=== PATIENT | female | born 1940 | race Caucasian/White ===

== ENCOUNTER 2021-11-24 16:14 | Inpatient (IN) | payer MEDICARE, BC ==
[~2021-11-24 16:14] MED LIST: Iopamidol-370 76% 500 ML 1 ML ONE
[2021-11-24 17:00] LABS: Hemoglobin 9.2 g/dL (12.0-16.0); Mean Corpuscular Hemoglobin 23.4 pg (27.0-31.0); Mean Corpuscular Volume 77.8 fL (78.0-98.0); Platelet Count 142 thou/uL (130-400); RBC Distribution Width 18.3 % (11.5-14.5); Red Blood Cell (RBC) Count 3.95 mill/uL (4.20-5.40); White Blood Cell (WBC) Count 7.6 thou/uL (4.8-10.8)
[2021-11-24 17:01] LABS: #Eosinphils 0.2 thou/uL (0.0-0.7); #Lymphocytes 0.6 thou/uL (1.20-3.40); #Monocytes 0.7 thou/uL (0.11-0.59); #Neutrophils 6.2 thou/uL (1.40-6.50); %Basophils 0.2 % (0.0-1.0); %Eosinophils 2.1 % (0.0-10.0); %Lymphocytes 8.4 % (21.0-51.0); %Monocytes 8.7 % (0.0-10.0); %Neutrophils 80.6 % (42.0-75.0)
[2021-11-24 17:14] LABS: ALT (SGPT) 8 U/L (8-55); AST (SGOT) 18 U/L (5-34); Albumin 3.5 g/dL (3.4-4.8); Alkaline Phosphatase 60 U/L (40-110); Anion Gap 15 mmol/L (10-20); Anisocytosis SLIGHT = 6-15 cells (100X) (0-5/hpf); BUN (Urea Nitrogen) 24 mg/dL (9.8-20.1); Bilirubin, Total 0.7 mg/dL (0.2-1.2); Calc. Creatinine Clearance 0 mL/min (70-130); Calcium 8.4 mg/dL (7.8-10.44); Carbon Dioxide 27 mmol/L (23-31); Chloride 100 mmol/L (98-107); Globulin 2.9 g/dL (2.4-3.5); Glucose 137 mg/dL (83-110); Hypochromia SLIGHT = 6-15 cells (100X) (0-5/hpf); MDiff Complete? YES; Ovalocytes SLIGHT = 2-5 cells (100X) (0-1/hpf); Platelet Morphology Comment Appears Adequate; Polychromasia SLIGHT = 2-3 cells (100X) (0-2/hpf); Protein, Total 6.4 g/dL (5.8-8.1); Sodium 138 mmol/L (136-145)
[2021-11-24] MEDS ORDERED: Furosemide 40 MG/4 ML VIAL ONE (17:52)
[2021-11-24 19:58] LABS: Lactic Acid 0.8 mmol/L (0.5-2.2)
[2021-11-24] MEDS ORDERED: Dextrose 50% Abboject 50 ML SYRINGE SLOW IVP PRN (20:58)
[2021-11-24] MEDS ORDERED: Ondansetron PF 4 MG/2 ML Vial IVP PRN (20:58)
[2021-11-24] MEDS ORDERED: Ondansetron ODT 4 MG TAB PO PRN (20:58)
[2021-11-24] MEDS ORDERED: Dextrose 5% in Water 1,000 ML IV PRN (20:58)
[2021-11-24] MEDS ORDERED: HumaLOG 300 UNITS/3 ML VIAL SC PRN ×2 (20:58)
[2021-11-24] MEDS ORDERED: Acetaminophen 650 MG Suppository PR PRN (20:58)
[2021-11-24] MEDS ORDERED: Acetaminophen 325 MG TAB PO PRN (20:58)
[2021-11-25] MEDS: HYDROcodone/Acetaminophen 5/325 mg Tablet PO PRN ×5 (02:00→21:00)
[2021-11-25 04:44] LABS: #Eosinphils 0.2 thou/uL (0.0-0.7); #Lymphocytes 0.7 thou/uL (1.20-3.40); #Monocytes 0.6 thou/uL (0.11-0.59); #Neutrophils 5.5 thou/uL (1.40-6.50); %Basophils 0.1 % (0.0-1.0); %Eosinophils 2.8 % (0.0-10.0); %Lymphocytes 9.5 % (21.0-51.0); %Monocytes 8.2 % (0.0-10.0); %Neutrophils 79.5 % (42.0-75.0); Hemoglobin 7.8 g/dL (12.0-16.0); Mean Corpuscular HGB CONC 29.3 g/dL (32.0-36.0); Mean Corpuscular Volume 78.5 fL (78.0-98.0); Mean Platelet Volume 9.6 fL (7.4-10.4); Platelet Count 138 thou/uL (130-400); RBC Distribution Width 18.1 % (11.5-14.5); White Blood Cell (WBC) Count 6.9 thou/uL (4.8-10.8)
[2021-11-25 05:01] LABS: Iron Binding Capacity, Total 265 mcg/dL (265-497)
[2021-11-25 05:02] LABS: Anion Gap 11 mmol/L (10-20); BUN (Urea Nitrogen) 19 mg/dL (9.8-20.1); Calc. Creatinine Clearance 60 mL/min (70-130); Calcium 8.4 mg/dL (7.8-10.44); Carbon Dioxide 30 mmol/L (23-31); Chloride 100 mmol/L (98-107); Glucose 106 mg/dL (83-110); Iron 12 ug/dL (50-170); Iron Binding Capacity, Total 268 mcg/dL (265-497); Potassium 3.4 mmol/L (3.5-5.1); Sodium 138 mmol/L (136-145)
[2021-11-25 06:36] LABS: Iron 14 ug/dL (50-170)
[2021-11-25] MEDS ORDERED: Docusate 100 MG CAP PO PRN (08:15)
[2021-11-25] MEDS ORDERED: Furosemide 20 MG/2 ML VIAL SLOW IVP SCH (08:30)
[2021-11-25] MEDS ORDERED: Furosemide 40 MG/4 ML VIAL SLOW IVP SCH (09:00)
[2021-11-25] MEDS: Enoxaparin Sodium 40 MG/0.4 ML SYRINGE SC SCH (09:02)
[2021-11-25] MEDS: Aspirin 81 mg Enteric Coated Tablet PO SCH (09:03)
[2021-11-25] MEDS: Cholecalciferol 1,000 UNITS (25 MCG) TAB PO SCH (09:04)
[2021-11-25] MEDS ORDERED: Potassium Chloride 20 MEQ TAB PO SCH (12:15)
[2021-11-25] MEDS ORDERED: Electrolyte Replacement Protocol 1 EACH FS PRN (12:15)
[2021-11-25] MEDS: Furosemide 20 MG/2 ML VIAL SLOW IVP SCH (13:21)
[2021-11-25 13:36] LABS: Hemoglobin 9.4 g/dL (12.0-16.0)
[2021-11-25] MEDS: Ferrous Sulfate 325 MG TAB PO SCH (16:08)
[2021-11-25 18:05] LABS: SARS-CoV-2 PCR by NAA Not Detected (NotDetected)
[2021-11-25] MEDS: traZODone HCl 50 MG TAB PO SCH (21:01)
[2021-11-25] MEDS: Atorvastatin Calcium 10 MG TAB PO SCH (21:01)
[2021-11-25] MEDS: Latanoprost 0.005% Ophth Soln 2.5 ml Bottle EA EYE SCH (21:04)
[2021-11-26 05:18] LABS: Hemoglobin 8.2 g/dL (12.0-16.0); Mean Corpuscular HGB CONC 29.5 g/dL (32.0-36.0); Mean Corpuscular Hemoglobin 23.2 pg (27.0-31.0); Mean Corpuscular Volume 78.6 fL (78.0-98.0); Mean Platelet Volume 9.8 fL (7.4-10.4); Platelet Count 125 thou/uL (130-400); Red Blood Cell (RBC) Count 3.53 mill/uL (4.20-5.40); White Blood Cell (WBC) Count 4.9 thou/uL (4.8-10.8)
[2021-11-26 05:23] LABS: Anion Gap 10 mmol/L (10-20); BUN (Urea Nitrogen) 21 mg/dL (9.8-20.1); Calc. Creatinine Clearance 58 mL/min (70-130); Calcium 8.6 mg/dL (7.8-10.44); Carbon Dioxide 32 mmol/L (23-31); Cardiac Risk 2.9 (Less than 4.5); Chloride 98 mmol/L (98-107); Cholesterol 78 mg/dl (< 200 Desired); Glucose 99 mg/dL (83-110); HDL Cholesterol 27 mg/dL (>60 Neg Risk); LDL Cholesterol, Calculated 38 mg/dL; Potassium 3.9 mmol/L (3.5-5.1); Sodium 136 mmol/L (136-145); Triglycerides 66 mg/dL (Less than 150)
[2021-11-26] MEDS: HYDROcodone/Acetaminophen 5/325 mg Tablet PO PRN ×3 (05:36→17:16)
[2021-11-26] MEDS: Furosemide 20 MG/2 ML VIAL SLOW IVP SCH ×2 (05:36→13:42)
[2021-11-26] MEDS: Ferrous Sulfate 325 MG TAB PO SCH ×2 (09:13→17:16)
[2021-11-26] MEDS: Aspirin 81 mg Enteric Coated Tablet PO SCH (09:13)
[2021-11-26] MEDS: Enoxaparin Sodium 40 MG/0.4 ML SYRINGE SC SCH (09:13)
[2021-11-26] MEDS: Cholecalciferol 1,000 UNITS (25 MCG) TAB PO SCH (09:13)
[2021-11-26] MEDS: Vancomycin 25 MG/ML Oral SOLN PO SCH ×2 (11:27→21:54)
[2021-11-26] MEDS: Latanoprost 0.005% Ophth Soln 2.5 ml Bottle EA EYE SCH (21:54)
[2021-11-26] MEDS: Atorvastatin Calcium 10 MG TAB PO SCH (21:54)
[2021-11-26] MEDS: traZODone HCl 50 MG TAB PO SCH (21:55)
[2021-11-27] MEDS: Vancomycin 25 MG/ML Oral SOLN PO SCH ×3 (01:32→17:06)
[2021-11-27] MEDS: HYDROcodone/Acetaminophen 5/325 mg Tablet PO PRN ×4 (03:31→21:34)
[2021-11-27] MEDS ORDERED: Vancomycin 25 MG/ML Oral SOLN PO SCH (04:00)
[2021-11-27] MEDS: Furosemide 20 MG/2 ML VIAL SLOW IVP SCH (05:26)
[2021-11-27] MEDS: Enoxaparin Sodium 40 MG/0.4 ML SYRINGE SC SCH (09:52)
[2021-11-27] MEDS: Aspirin 81 mg Enteric Coated Tablet PO SCH (09:56)
[2021-11-27] MEDS: Cholecalciferol 1,000 UNITS (25 MCG) TAB PO SCH (09:56)
[2021-11-27] MEDS: Ferrous Sulfate 325 MG TAB PO SCH ×2 (09:56→17:05)
[2021-11-27] MEDS: Furosemide 20 MG TAB PO SCH (14:56)
[2021-11-27] MEDS: Atorvastatin Calcium 10 MG TAB PO SCH (21:33)
[2021-11-27] MEDS: Latanoprost 0.005% Ophth Soln 2.5 ml Bottle EA EYE SCH (21:33)
[2021-11-27] MEDS: traZODone HCl 50 MG TAB PO SCH (21:34)
[2021-11-28] MEDS: Vancomycin 25 MG/ML Oral SOLN PO SCH ×4 (00:02→17:54)
[2021-11-28 04:42] LABS: Hemoglobin 9.3 g/dL (12.0-16.0); Mean Corpuscular HGB CONC 29.4 g/dL (32.0-36.0); Mean Corpuscular Hemoglobin 22.9 pg (27.0-31.0); Mean Corpuscular Volume 77.9 fL (78.0-98.0); Mean Platelet Volume 9.5 fL (7.4-10.4); Platelet Count 159 thou/uL (130-400); RBC Distribution Width 18.3 % (11.5-14.5); Red Blood Cell (RBC) Count 4.06 mill/uL (4.20-5.40); White Blood Cell (WBC) Count 6.6 thou/uL (4.8-10.8)
[2021-11-28 05:01] LABS: Anion Gap 15 mmol/L (10-20); BUN (Urea Nitrogen) 24 mg/dL (9.8-20.1); Calc. Creatinine Clearance 54 mL/min (70-130); Calcium 8.6 mg/dL (7.8-10.44); Carbon Dioxide 27 mmol/L (23-31); Chloride 97 mmol/L (98-107); Glucose 99 mg/dL (83-110); Magnesium 1.8 mg/dL (1.6-2.6); Potassium 4.2 mmol/L (3.5-5.1); Sodium 135 mmol/L (136-145)
[2021-11-28] MEDS: Enoxaparin Sodium 40 MG/0.4 ML SYRINGE SC SCH (08:43)
[2021-11-28] MEDS: HYDROcodone/Acetaminophen 5/325 mg Tablet PO PRN ×2 (08:43→18:47)
[2021-11-28] MEDS: Aspirin 81 mg Enteric Coated Tablet PO SCH (08:43)
[2021-11-28] MEDS: Furosemide 20 MG TAB PO SCH ×2 (08:45→12:58)
[2021-11-28] MEDS: Cholecalciferol 1,000 UNITS (25 MCG) TAB PO SCH (08:45)
[2021-11-28] MEDS: Magnesium 2 GM/50 ML(in water) 2 GM in Premix Bag 1 BAG IVPB SCH ×2 (08:45→12:43)
[2021-11-28] MEDS: Ferrous Sulfate 325 MG TAB PO SCH ×2 (08:45→17:54)
[2021-11-28] MEDS ORDERED: Mirtazapine 15 MG TAB PO SCH (21:00)
[2021-11-28] MEDS: traZODone HCl 50 MG TAB PO SCH (21:57)
[2021-11-28] MEDS: Latanoprost 0.005% Ophth Soln 2.5 ml Bottle EA EYE SCH (21:57)
[2021-11-28] MEDS: Atorvastatin Calcium 10 MG TAB PO SCH (21:57)
[2021-11-29] MEDS: Vancomycin 25 MG/ML Oral SOLN PO SCH ×4 (00:13→15:33)
[2021-11-29] MEDS: HYDROcodone/Acetaminophen 5/325 mg Tablet PO PRN ×2 (00:13→05:30)
[2021-11-29] MEDS: Ferrous Sulfate 325 MG TAB PO SCH ×2 (10:20→15:32)
[2021-11-29] MEDS: Cholecalciferol 1,000 UNITS (25 MCG) TAB PO SCH (10:20)
[2021-11-29] MEDS: Enoxaparin Sodium 40 MG/0.4 ML SYRINGE SC SCH (10:21)
[2021-11-29] MEDS: Furosemide 20 MG TAB PO SCH ×2 (10:21→15:33)
[2021-11-29] MEDS: Aspirin 81 mg Enteric Coated Tablet PO SCH (10:21)
[2021-11-29 15:03] VITALS: BMI 25.0
[2021-11-29] MEDS: Cyanocobalamin (Vitamin B-12) 1,000 MCG TAB PO SCH ×2 (15:37→15:38)
[2021-11-29 18:32] VITALS: BP 175/79; TEMP 97.2
== END 2021-11-29 19:15 | DRG 291 ==
LOC: ERS 16:14 → 2NO 18:52 → OBSVTOIN 18:52
PROVIDERS: ADMIT Internal Medicine; ATTEND Internal Medicine
DX: I11.0 Hypertensive heart disease with heart failure (principal); I50.23 Acute on chronic systolic (congestive) heart failure; J98.11 Atelectasis; A04.72 Enterocolitis due to Clostridium difficile, not specified as recurrent; I48.91 Unspecified atrial fibrillation; Z66 Do not resuscitate; Z20.822 Contact with and (suspected) exposure to COVID-19; E78.00 Pure hypercholesterolemia, unspecified; E66.9 Obesity, unspecified; E78.5 Hyperlipidemia, unspecified; D50.9 Iron deficiency anemia, unspecified; I25.10 Atherosclerotic heart disease of native coronary artery without angina pectoris; E11.51 Type 2 diabetes mellitus with diabetic peripheral angiopathy without gangrene; K59.00 Constipation, unspecified; R63.0 Anorexia; E87.6 Hypokalemia; Z90.49 Acquired absence of other specified parts of digestive tract; Z95.0 Presence of cardiac pacemaker; Z89.511 Acquired absence of right leg below knee; Z90.710 Acquired absence of both cervix and uterus; Z88.2 Allergy status to sulfonamides; Z88.5 Allergy status to narcotic agent; Z79.82 Long term (current) use of aspirin; Z88.1 Allergy status to other antibiotic agents; Z89.422 Acquired absence of other left toe(s); Z68.25 Body mass index [BMI] 25.0-25.9, adult
CPT/HCPCS: 36415; 36416; 71045; 71275; 80048; 80053; 80061; 82728; 83540; 83550; 83605; 83735; 83880; 84484; 85025; 85027; 85379; 87040; 87324; 87449; 93005; 93306; 93798; 96374; J1650; J1940; J3475; Q9967; U0003; U0005